=== PATIENT | female | born 1975 | race Caucasian/White ===

== ENCOUNTER 2019-03-14 20:43 | Emergency (ER) | payer MEDICAID, SELFPAY ==
[2019-03-14 20:44] VITALS: BP 129/85; PULSE 89; RESP 15; TEMP 36.8; O2SAT 99; BMI 20.6
--- NOTE | 2019-03-14 21:06 | CT_ITS ---
STUDY: CT BRAIN WITHOUT CONTRAST REASON FOR EXAM: Female, 43 years old. Hit head on fridge RADIATION DOSAGE (If Supplied By Facility): CTDIvol = ( 44.99 ) mGy, DLP = ( 762.36 ) mGycm TECHNIQUE: Transaxial CT imaging of the brain was performed without administration of intravenous contrast material. Individualized dose optimization techniques were used for this CT. COMPARISON: No relevant priors. FINDINGS: Normal soft tissue structures. Normal calvarium. Normal size ventricles and extra-axial spaces for the patient's age. Normal white matter tracts of the cerebral hemispheres. Normal basal ganglia and thalami. Normal brainstem. Normal cerebellum. There is no intracranial hemorrhage. There are no findings of an acute ischemic infarction. Normal visualized paranasal sinuses. CT/Brain/Head without Contrast IMPRESSION: Normal unenhanced CT scan of the brain. Electronically Signed: Zeeshan Pineda DO at 21:34 EDT Tel , Service support ,
--- NOTE | 2019-03-14 21:07 | ED.VIS.INJ ---
History of Present Illness Chief Complaint: Head Injury Informant: Patient Onset: Hours - 1 Mechanism/Context: Blunt Injury - slipped on wet kitchen floor, hit head on refrigerator Quality of Pain: Aching Location: forehead Current Severity: Moderate Maximum Severity: Moderate Worsened by: palpation Relieved by: ice pack Associated Symptoms: Negative for: Parasthesias, Weakness, Inability to ambulate, Loss of consciousness, Amnesia Narrative: Patient has a headache and nausea but no vomiting or focal neurologic symptoms or vision changes. No neck pain, back pain, or other injury. She takes no antiplatelet or anticoagulant medications, states she has no medical problems. Past Medical History - Allergies and Home Meds Allergies/Adverse Reactions: Allergies Penicillins [PCN] Allergy (Verified 03/14/19 20:44) Hives Sulfa (Sulfonamide Antibiotics) Allergy (Verified 03/14/19 20:44) Hives Primary Care Physician: NOT,DEFINED [NON-STAFF] - Past Medical History: None Lives: With Family Smoking Status: Current every day smoker Drugs: None Review of Systems Eyes: Denies: Visual changes - bilaterally, Diplopia Gastrointestinal: Reports: Nausea. Denies: Vomiting Musculoskeletal: Denies: Neck pain, Back pain, Swelling, Extremity Pain Skin: Denies: Rash, Abscess Neurological: Reports: Headache. Denies: Weakness, Parasthesia, Numbness Physical Exam Vital Signs/Narrative: Vital Signs Temp Pulse Resp BP Pulse Ox 03/14/19 20:44 98.2 F 89 15 129/85 H 99 Inital Vital Signs reviewed: Yes General: Well nourished, Well developed Head: Normocephalic, Trauma - Contusion with small hematoma left forehead, no crepitance or depression or laceration Eyes: Perrl, EOMI - Without pain or extraocular entrapment. All visual perez intact. ENT: TM's clear, No hemotympanum or drainage, No trauma. Negative for: Otorrhea, Nasal trauma Neck: Nontender, Full ROM Skin: Normal color, No rash, Trauma - Contusion/hematoma forehead Neurological: Alert, Oriented x3, Cranial nerves II-XII grossly intact, Normal Strength, Normal Sensation, Normal Gait Psychological: Normal affect, Normal Mood - Glascow Coma Scale Eye Opening: Spontaneous Motor: Obeys Commands Verbal: Oriented Coma Scale Total: 15 Diagnostic/Tx/Re-eval Clinical Impression(s) from Imaging Studies Brain CT 03/14/19 21:06 IMPRESSION: Normal unenhanced CT scan of the brain. Electronically Signed: Zeeshan Pineda DO at 21:34 EDT Tel , Service support , - Medical Decision Making CT is negative, she feels better after Tylenol and Zofran, given appropriate discharge instructions for supportive care and follow-up as needed. ED Disposition - Plan for ED Patient: Disposition: Home or Assisted Living Diagnosis: Closed head injury without loss of consciousness, Traumatic hematoma of forehead Instructions: SCALP CONTUSION, No Wake Up Referrals: Doctor,Your [STAFF PHYSICIAN] - 1 Week if not improving
[2019-03-14] MEDS: Ondansetron ODT 4 MG Tablet 8 MG PO (21:16)
[2019-03-14] MEDS: Acetaminophen 500 MG Tablet 1000 MG PO (21:17)
[2019-03-14 22:39] VITALS: BP 118/72; PULSE 82; RESP 16; O2SAT 98
== END 2019-03-14 22:40 | disposition home or self-care (01) ==
PROVIDERS: Emergency Provider Emergency Medicine
DX: S00.83XA Contusion of other part of head, initial encounter (principal); R11.0 Nausea; R40.2410 Glasgow coma scale score 13-15, unspecified time; W01.0XXA Fall on same level from slipping, tripping and stumbling without subsequent striking against object, initial encounter; Y93.9 Activity, unspecified; Y92.9 Unspecified place or not applicable; F17.200 Nicotine dependence, unspecified, uncomplicated
CPT/HCPCS: 70450; 99283

== ENCOUNTER 2021-10-22 14:01 | Emergency (ER) | payer OTHER, MEDICAID, SELFPAY ==
[2021-10-22 14:02] VITALS: BP 138/92; PULSE 91; RESP 18; TEMP 35.6; O2SAT 98; BMI 21.6
--- NOTE | 2021-10-22 14:44 | EDS_ITS ---
HPI History of Present Illness Chief Complaint: Complaint Informant: patient Narrative Narrative: Patient is a 46-year-old female that denies any past medical history presenting with fever and dysuria. Patient was seen at urgent care 2 days ago where she was diagnosed with a urinary tract infection. She was placed on Macrobid. She has had 4 doses. She is continued to have fever, feeling thirsty and frequency of urination. She notes her urine is darker in color. She does have mild dysuria. She has mild tenderness in the right lower quadrant but denies any back pain. She has had decreased appetite and some nausea. Denies any abnormal vaginal bleeding or discharge. Has had fatigue and has been very tired. States she is unable to sleep because she is up all night try to urinate. She does report a little stuffy nose but attributes that to hot and cold flashes and sleeping with her window open. No sick contacts. Last had Tylenol this morning which she does feel helps her symptoms but her fever and chills will return when it wears off. Did not remember when her last urinary tract infection was. No change in bowel habits but does have some mild discomfort when she has a bowel movement but it resolves quickly after BM. [facility] Medical History (Updated 10/22/21 @ 17:[address] Jessika Coyne, ) Depression Home Medications cephalexin 500 mg PO Q6 #40 cap 10/22/21 [Rx Last Taken Unknown] nitrofurantoin monohyd/m-cryst [Macrobid] 100 mg PO BID 10/22/21 [History Last Taken Unknown] norethindrone (contraceptive) 0.35 mg PO DAILY 10/22/21 [History Last Taken Unknown] ondansetron 4 mg PO Q8H PRN #10 tab 10/22/21 [Rx Last Taken Unknown] sertraline 100 mg PO QHS 10/22/21 [History Last Taken Unknown] Allergy/AdvReac Type Severity Reaction Status Date / Time Penicillins [PCN] Allergy Hives Verified 10/22/21 14:04 prednisone Allergy Hives Verified 10/22/21 14:04 Sulfa (Sulfonamide Allergy Hives Verified 10/22/21 14:04 Antibiotics) Social History Smoking Status: Current every day smoker tobacco type: cigarettes ROS ROS ED Constitutional Constitutional ED: Reports chills, fever(s) and sweats Eyes Eyes: Denies change in vision ENT ENT ED: Reports other Details: nasal congestion ; Denies ear pain or rhinorrhea Cardiovascular Cardiovascular: Denies chest pain or palpitations Respiratory/Chest Respiratory/Chest: Denies dyspnea Gastrointestinal Gastrointestinal: Reports abdominal pain and nausea; Denies constipation, diarrhea or vomiting Genitourinary Genitourinary ED: Reports dysuria and urinary frequency; Denies hematuria Musculoskeletal Musculoskeletal: Reports myalgias; Denies arthralgias or back pain Integumentary Denies rash Neurologic Neurologic: Denies headache(s) or weakness Psychiatric Psychiatric: Denies anxiety or depression EXAM Physical Exam Const Vital Signs: 10/22/21 14:02 10/22/21 14:46 10/22/21 18:40 Temperature 96.1 F L 96.1 F L Temperature Source Temporal Temporal Pulse Rate 91 91 88 Respiratory Rate 18 18 17 Blood Pressure 138/92 H 138/92 H Blood Pressure Mean 107 107 Pulse Ox 98 98 96 Oxygen Delivery Method Room Air Positive well nourished and well developed General Appearance ED: well developed HEENT Reports dry mucous membranes Negative for tenderness Mouth ED: Yes dry mucous membranes Mouth: dry mucous membranes Eyes PERRL and EOMs intact bilaterally Neck supple General: Negative for tenderness Chest Wall inspection of chest normal Resp normal respiratory effort and clear to auscultation bilaterally Cardio regular rate, regular rhythm and no murmurs GI normal to inspection, nondistended, normoactive bowel sounds Palpation: tender RLQ; Negative for guarding or rebound tenderness present Back/Spine no CVA tenderness Extremity normal to inspection Neuro oriented x3 Sensorium / Orientation: alert Motor Exam: Negative for general weakness Psych mental status grossly normal Skin no rashes or lesions noted and no wounds MDM MDM MDM Narrative Medical decision making narrative: Patient evaluated for fever and worsening right lower quadrant abdominal pain in the setting of a recent diagnosis of a urinary tract infection. She is been on 2 days of Macrobid with worsening symptoms. Patient is hemodynamically stable and afebrile the emergency room. She does have a mild leukocytosis of 14.1. Urinalysis shows 150 ketones as well as 25 leukoesterase with 0 bacteria. Potassium is low at 2.8. Magnesium was checked which is normal and she is given IV and oral potassium replacement. Given her right lower quadrant tenderness, leukocytosis without significantly abnormal urinalysis I did obtain a CT of the abdomen pelvis to rule out other pathology such as appendicitis or diverticulitis. CT is remarkable for pyelonephritis. This does fit her clinical picture. Patient is given a dose of IV Rocephin. Urine culture sent. She is started on high-dose Keflex for this. She is also given a prescription for Zofran. She is counseled on return precautions. At this time I think further switch of antibiotics for outpatient follow-up is indicated as Macrobid does not have any coverage for the kidneys. Lab Data Attestation: I reviewed the patient's lab results. Labs: Laboratory Results - last 24 hr 10/22/21 10/22/21 10/22/21 14:50 14:50 14:50 WBC 14.1 H RBC 4.36 Hgb 14.6 Hct 41.1 MCV 94.3 MCH 33.5 H MCHC 35.5 RDW Std Deviation 43.5 RDW Coeff of Krystal 12.3 Plt Count 278 MPV 10.8 Immature Gran % (Auto) 0.500 Neut % (Auto) 75.8 H Lymph % (Auto) 13.6 L [place] % (Auto) 9.5 Eos % (Auto) 0.4 Baso % (Auto) 0.2 Absolute Neuts (auto) 10.7 H Absolute Lymphs (auto) 1.92 Nucleated RBC % 0 Sodium 136 Potassium 2.8 L Chloride 100 Carbon Dioxide 30.0 Anion Gap 6 BUN 16 Creatinine 0.83 Estim Creat Clear Calc 75.40 Est GFR (MDRD) Af Amer 94 Est GFR (MDRD) Non-Af 78 BUN/Creatinine Ratio 19.2 Glucose 122 H Calcium 9.6 Magnesium Total Bilirubin 0.40 AST 15 ALT 35 Alkaline Phosphatase 142 H Total Protein 7.7 Albumin 3.1 L Globulin 4.6 H Albumin/Globulin Ratio 0.7 L Urine Color Yellow Urine Clarity Clear Urine pH 6.0 Ur Specific [place] 1.015 Urine Protein 30 H Urine Glucose (UA) Normal Urine Ketones 150 A* Urine Occult Blood 25 H Urine Nitrite Negative Urine Bilirubin Negative Urine Urobilinogen Normal Ur Leukocyte Esterase 25 H Urine RBC 0 SEEN Urine WBC 0-5 SEEN Ur Squamous Epith Cells 0-5 SEEN Urine Bacteria 0 SEEN Urine Mucus 0 SEEN 10/22/21 14:50 WBC RBC Hgb Hct MCV MCH MCHC RDW Std Deviation RDW Coeff of [place] Plt Count MPV Immature Gran % (Auto) Neut % (Auto) Lymph % (Auto) [place] % (Auto) Eos % (Auto) Baso % (Auto) Absolute Neuts (auto) Absolute Lymphs (auto) Nucleated RBC % Sodium Potassium Chloride Carbon Dioxide Anion Gap BUN Creatinine Estim Creat Clear Calc Est GFR (MDRD) Af Amer Est GFR (MDRD) Non-Af BUN/Creatinine Ratio Glucose Calcium Magnesium 2.3 Total Bilirubin AST ALT Alkaline Phosphatase Total Protein Albumin Globulin Albumin/Globulin Ratio Urine Color Urine Clarity Urine pH Ur Specific [place] Urine Protein Urine Glucose (UA) Urine Ketones Urine Occult Blood Urine Nitrite Urine Bilirubin Urine Urobilinogen Ur Leukocyte Esterase Urine RBC Urine WBC Ur Squamous Epith Cells Urine Bacteria Urine Mucus Radiography Diagnostic Testing: Clinical Impression(s) from Imaging Studies Abdomen/Pelvis CT 10/22/21 15:12 IMPRESSION: Suspected right pyelonephritis. Clinical correlation is recommended Electronically Signed: Steve Mosqueda MD at 15:57 EST , Discharge Plan Triage Chief Complaint: Complaint ED Provider: Jessika Coyne Dx/Rx/DC Orders Clinical Impression: Pyelonephritis of right kidney, Hypokalemia Instructions: ED Hypokalemia, ED Pyelonephritis, Female (Adult) Prescriptions: New cephalexin 500 mg capsule 500 mg PO Q6 Qty: 40 RF: 0 ondansetron 4 mg tablet,disintegrating 4 mg PO Q8H PRN (Reason: nausea and vomiting) Qty: 10 RF: 0 No Action sertraline 100 mg tablet 100 mg PO QHS RF: 0 norethindrone (contraceptive) 0.35 mg tablet 0.35 mg PO DAILY RF: 0 nitrofurantoin monohyd/m-cryst [Macrobid] 100 mg Capsule 100 mg PO BID RF: 0 Stand Alone Forms: ED Work / School Excuse Referrals: [facility] [Other] Activity Restrictions/Additional Instructions: If you do not have improvement within 48 hours please return to the emergency room. If you feel like you are worsening, cannot keep yourself hydrated or cannot keep your medicines down please return to the emergency room. Disposition Disposition: Home, Self Care Discharge Date/Time: 10/22/21 18:41
[2021-10-22 14:46] VITALS: BP 138/92; PULSE 91; RESP 18; TEMP 35.6; O2SAT 98
[2021-10-22] MEDS: 0.9% Normal Saline 1,000 ML 1000 ML IV (14:56)
[2021-10-22] MEDS: Ketorolac 15 MG/ML Vial IV (14:56)
[2021-10-22 14:57] LABS: Bacteria 0 SEEN /hpf (None Seen); Mucous, Urine 0 SEEN /hpf (<or=2+); Red Blood Cells-Urine 0 SEEN /hpf (0-5)
[2021-10-22 14:59] LABS: Color, Urine Yellow (Yellow); Glucose, Dipstick Normal (Normal); Leukocyte Esterase-Dipstick 25 /ul (Negative); Nitrite-Dipstick Negative (Negative); Occult Blood-Urine 25 /ul (Negative); Protein-Dipstick 30 mg/dl (Negative); Specific Gravity, Urine 1.015 (1.002-1.030); Urine Bilirubin Dipstick Negative (Negative); Urine Clarity Clear (Clear); Urine Urobilinogen Normal (Normal)
[2021-10-22 15:00] LABS: Absolute Lymphocyte Count 1.92 X10^3/uL (0.83-4.51); Absolute Neutrophil Count 10.7 X10^3/uL (2.0-7.7); Basophil# 0.03 X10^3/uL; Basophil% 0.2 % (0-1); Eosinophil# 0.05 X10^3/uL; Eosinophils% 0.4 % (0-5); Hematocrit 41.1 % (37-47); Hemoglobin 14.6 g/dL (12.0-15.0); Lymphocyte # 1.92 X10^3/ul (0.83-4.51); Lymphocyte % 13.6 % (19-41); Mean Corp Hgb Conc 35.5 g/dL (32-36); Mean Corpuscular Hgb 33.5 pg (27.0-32.0); Mean Corpuscular Volume 94.3 fL (81-99); Mean Platelet Vol. 10.8 fl (6.2-12.0); Monocyte# 1.34 X10^3/uL; Monocyte% 9.5 % (0-10); NRBC Flagged by Analyzer 0 % (0-5); Neutrophil % 75.8 % (47-70); Platelet Count 278 K/mm3 (150-450); RBC Distribution Width CV 12.3 % (11.6-14.6); RBC Distribution Width SD 43.5 fl (35.1-43.9); Red Blood Count 4.36 M/mm3 (4.2-5.4); White Blood Count 14.1 K/mm3 (4.4-11.0)
[2021-10-22 15:01] LABS: Ketone-Dipstick 150 mg/dl (Negative); Squamous Epithelial Cells - UA 0-5 SEEN /hpf (5-10); White Blood Cells 0-5 SEEN /hpf (0-5)
--- NOTE | 2021-10-22 15:12 | CT_ITS ---
STUDY: CT ABDOMEN AND PELVIS WITH CONTRAST REASON FOR EXAM: Female, 46 years old. RLQ adams, fever RADIATION DOSAGE (If Supplied By Facility): CTDIvol = ( 6.14 ) mGy, DLP = ( 288.98 ) mGycm TECHNIQUE: Transaxial images were obtained from the dome of the diaphragm to the symphysis pubis without oral contrast. IV 100mL [id number]-300 was administered. Sagittal and coronal images were reconstructed. Individualized dose optimization techniques were used for this CT. COMPARISON: None. FINDINGS: The visualized lung bases are unremarkable. The visualized portions of the heart are within normal limits. Normal liver. Normal gallbladder and extrahepatic biliary system. Normal spleen. Normal pancreas. There is a small, circumscribed, smooth, low attenuation left adrenal mass, consistent with an adrenal adenoma. Normal right adrenal gland. There are some focal areas of decreased enhancement within the right kidney with stranding of surrounding fat suggestive of pyelonephritis. 2.5 cm cyst in the midsection of the right kidney. Normal left kidney. Normal visualized stomach. Normal small intestine. Normal colon. There is non-visualization of the appendix. Normal abdominal aorta. Normal inferior vena cava. Normal retroperitoneum. Normal urinary bladder. Status post bilateral tubal ligation. Normal abdominal wall. Normal osseous structures. CT/Abdomen/Pelvis W IV Cont ONLY IMPRESSION: Suspected right pyelonephritis. Clinical correlation is recommended Electronically Signed: Steve Mosqueda MD at 15:57 EST ,
[2021-10-22 15:15] LABS: ALB/GLOB Ratio 0.7 RATIO (0.9-2.4); AST(SGOT) 15 U/L (15-37); Alanine Aminotransfer ALT/SGPT 35 U/L (13-56); Albumin, Serum 3.1 g/dL (3.2-5.0); Alkaline Phosphatase 142 U/L (45-117); Anion Gap 6 (5-15); BUN 16 mg/dL (7-18); BUN/Creat Ratio 19.2 RATIO (10-20); Calcium,Total 9.6 mg/dL (8.5-10.1); Chloride 100 mmol/L (98-107); Creatinine, Serum 0.83 mg/dL (0.55-1.02); EST Glomerular Filtration Rate 78 mL/min (>60); Est Glom Filt Rate - Afr Amer 94 mL/min (>60); Globulin 4.6 g/dL (2.2-4.2); Glucose 122 mg/dL (74-106); Potassium 2.8 mmol/L (3.5-5.1); Protein, Total 7.7 g/dL (6.4-8.2); Sodium Level 136 mmol/L (136-145)
[2021-10-22 16:14] LABS: Magnesium 2.3 mg/dL (1.6-2.6)
[2021-10-22] MEDS: Potassium Chloride 10mEq/100mL 10 MEQ/100 ML IV.SOLN. 100 MEQ IV BOLUS ×2 (16:19→17:23)
[2021-10-22] MEDS: Ceftriaxone 1 GM/50 ML BAG IV (16:44)
[2021-10-22] MEDS: Potassium Chloride Oral Tablet 20 MEQ 40 MEQ PO (16:48)
[2021-10-22 18:40] VITALS: PULSE 88; RESP 17; O2SAT 96
== END 2021-10-22 18:41 | disposition home or self-care (01) ==
PROVIDERS: Emergency Provider Emergency Medicine; Visit Provider Emergency Medicine
DX: N12 Tubulo-interstitial nephritis, not specified as acute or chronic (principal); R09.81 Nasal congestion; F17.210 Nicotine dependence, cigarettes, uncomplicated; E87.6 Hypokalemia; F32.A Depression, unspecified
CPT/HCPCS: 74177; 80053; 81001; 83735; 85025; 87086; 87088; 96361; 96365; 96366; 96367; 96375; 99284; J7030; J7050; Q9967; A4216